=== PATIENT | male | born 1955 | race Caucasian/White ===

== ENCOUNTER 2018-05-07 09:34 | Emergency (ER) | payer OTHER ==
[~2018-05-07] VITALS: Ht 180.3 cm; Wt 114.0 kg
[~2018-05-07 09:34] MED LIST: COL100 PO; KEFLEX500 MG PO; NOR10T PO
[2018-05-07 09:58] VITALS: Ht 180.3 cm; Wt 114.0 kg
[2018-05-07 12:30] VITALS: BP 164/82
== END 2018-05-07 13:46 | disposition home or self-care (01) ==
LOC: ED 09:34
DX: H10.31 Unspecified acute conjunctivitis, right eye (principal); I10 Essential (primary) hypertension; E11.9 Type 2 diabetes mellitus without complications